=== PATIENT | male | born 1960 ===

== ENCOUNTER 2018-05-10 07:38 | Day surgery (SDC) | payer OTHER ==
[~2018-05-10] VITALS: Ht 165.1 cm; Wt 79.4 kg
[2018-05-10] VITALS (11 sets, daily range): BP systolic 121–156; BP diastolic 75–98
[~2018-05-10 07:38] MED LIST: ceFAZolin 1gm IVPB IVPB ONE; celeBREX 200mg Cap **SURGERY PATIENTS ONLY ORAL ONE; oxyCONTIN 20mg tab ORAL ONE
--- NOTE | 2018-05-10 07:54 | Operative Note - PDOC ---
Operative Note Operative Note Pre-op Diagnosis: left shoulder impingement, rct Procedure: see op report Post-op Diagnosis: same as pre-op plus Operative Findings: consistent w/pre-op dx studies Anesthesia: MAC Specimen: none Complications: none Condition: stable Estimated Blood Loss: none Implant(s) used?: No García Patton MD May 10, 2018 07:54
--- NOTE | 2018-05-10 07:54 | Pre-Procedure Note/Attestation ---
Pre-Procedure Note/Attestation Complete Prior to Procedure Planned Procedure: left Procedure Narrative: shoulder arthroscopy, sad, possible rc repair Indications for Procedure Pre-Operative Diagnosis: left shoulder impingement, rct Attestation I attest that I discussed the nature of the procedure; its benefits; risks and complications; and alternatives (and the risks and benefits of such alternatives ), prior to the procedure, with the patient (or the patient's legal product representative). I attest that, if there was a reasonable possibility of needing a blood transfusion, the patient (or the patient's legal product representative) was given the [facility] standardized written summary, pursuant to the Maurice Cecil Blood Safety Act ([place] Health and Safety Code # 1645, as amended). I attest that I re-evaluated the patient just prior to the surgery and that there has been no change in the patient's H&P, except as documented below: García Patton MD May 10, 2018 07:54
[2018-05-10] MEDS ORDERED: NKM (08:32)
[2018-05-10] MEDS ORDERED: celeBREX 200mg Cap **SURGERY PATIENTS ONLY ORAL ONE (08:37)
[2018-05-10] MEDS ORDERED: oxyCONTIN 20mg tab ORAL ONE (08:37)
[2018-05-10] MEDS ORDERED: LR 1000ml ONE (09:30)
[2018-05-10] MEDS ORDERED: NS Irrig 4000ml IRRIG ONE (09:30)
[2018-05-10] MEDS ORDERED: EPINEPHrine 1mg/1ml Amp ONE (09:31)
[2018-05-10] MEDS ORDERED: Bupivacaine w/Epi 0.25% 30ml Vial INJ ONE (09:31)
[2018-05-10] MEDS ORDERED: Ropivacaine 5mg/ml Vial 30ml INJ ONE (09:33)
[2018-05-10] MEDS ORDERED: Dexamethasone 4mg/ml vial ONE ×2 (09:33→09:39)
[2018-05-10] MEDS ORDERED: Lidocaine 1% MPF 10mg/ml 5ml ONE (09:33)
--- NOTE | 2018-05-10 09:36 | Anethesia Preoperative Eval ---
Anesthesia Pre-op PMH/ROS General Date of Evaluation: May 10, 2018 Time of Evaluation: 09:36 Anesthesiologist: Christie ASA Score: ASA 3 Mallampati Score Class I : Soft palate, uvula, fauces, pillars visible Class II: Soft palate, uvula, fauces visible Class III: Soft palate, base of uvula visible Class IV: Only hard plate visible Mallampati Classification: Class II Surgeon: Abdi Diagnosis: L Shoulder Pain Surgical Procedure: L Shoulder Arthroscopy Anesthesia History: none Social History: current smoker Family History: no anesthesia problems Allergies: Coded Allergies: No Known Allergies (Unverified , 05/09/18) Medications: see eMAR Patient NPO?: Yes Anesthesia Pre-op Phys. Exam Physician Exam Last Vital Signs Date Time Temp Pulse Resp B/P (MAP) Pulse Ox O2 Delivery O2 Flow Rate FiO2 05/10/18 08:40 Room Air 05/10/18 08:25 98.5 49 18 121/75 95 Constitutional: NAD Neurologic: CN 2-12 intact Cardiovascular: RRR Respiratory: CTA Gastrointestinal: S/NT/ND Airway Exam Mallampati Score: Class II MO: full ROM: full Teeth: missing Anesthesia Pre-op A/P Risk Assessment & Plan Assessment: ASA 3 Plan: ASA 3 Status Change Before Surgery: No Pre-Antibiotics Dru Gram Ancef IV Given Within 1 Hr of Incision: Yes Time Given: 09:51 Vincent Soriano MD May 10, 2018 09:36
[2018-05-10] MEDS ORDERED: LR 1000ml 1,000 ML IVLG SCH (09:37)
[2018-05-10] MEDS ORDERED: oxyCODONE HCL/Acetaminophen 5/325mg ORAL PRN (09:45)
[2018-05-10] MEDS ORDERED: Meperidine 50mg/ml Inj(FOR RIGORS ONLY) IVP PRN (09:45)
[2018-05-10] MEDS ORDERED: HYDROcodone/Acetamin 7.5/325 tab ORAL PRN (09:45)
[2018-05-10] MEDS ORDERED: Metoclopramide 10mg/2ml Inj IVP PRN (09:45)
[2018-05-10] MEDS ORDERED: Atropine Sulfate 0.4mg/ml inj IVP PRN (09:45)
[2018-05-10] MEDS ORDERED: Midazolam 2mg/2ml Inj IVP PRN (09:45)
[2018-05-10] MEDS ORDERED: Hydromorphone 0.5mg/0.5ml inj IVP PRN (09:45)
[2018-05-10] MEDS ORDERED: fentaNYL 100 mcg/2 mL IV PRN (09:45)
[2018-05-10] MEDS ORDERED: Norco 5mg/325mg tab ORAL PRN ×2 (09:45→16:01)
[2018-05-10] MEDS ORDERED: DiphenhydrAMINE 50mg/ml Inj IVP PRN (09:45)
[2018-05-10] MEDS ORDERED: LORazepam Inj 2mg/ml 1ml IV PRN (09:45)
[2018-05-10] MEDS ORDERED: Ketorolac 30mg Inj IV PRN ×2 (09:45)
--- NOTE | 2018-05-10 10:19 | Immediate Post-Op Evaluation ---
Immediate Post-Op Evalulation Immediate Post-Op Evalulation Procedure: L Shoulder Arthroscopy Date of Evaluation: May 10, 2018 Time of Evaluation: 11:22 IV Fluids: 600 LR Blood Products: 0 Estimated Blood Loss: 7 Urinary Output: 0 Blood Pressure Systolic: 156 Blood Pressure Diastolic: 97 Pulse Rate: 82 Respiratory Rate: 16 O2 Sat by Pulse Oximetry: 94 Temperature (Fahrenheit): 97.6 Pain Score (1-10): 1 Nausea: No Vomiting: No Complications 0 Patient Status: awake, reacts, patent, none Hydration Status: adequate Dru Gram Ancef IV Given Within 1 Hr of Incision: Yes Time Given: 09:51 Vincent Soriano MD May 10, 2018 10:19
--- NOTE | 2018-05-10 10:20 | 48 Hour Post Anesthesia Eval ---
Post Anesthesia Evaluation Procedure: L Shoulder Arthroscopy Date of Evaluation: May 10, 2018 Time of Evaluation: 13:32 Blood Pressure Systolic: 132 0: 74 Pulse Rate: 54 Respiratory Rate: 18 Temperature (Fahrenheit): 98.2 O2 Sat by Pulse Oximetry: 94 Airway: patent Nausea: No Vomiting: No Pain Intensity: 1 Hydration Status: adequate Cardiopulmonary Status: Stable Mental Status/LOC: patient returned to baseline Follow-up Care/Observations: 0 Post-Anesthesia Complications: 0 Follow-up care needed: ready to discharge Vincent Soriano MD May 10, 2018 10:20
[2018-05-10] MEDS ORDERED: Tylenol #3 tab (300mg/30mg) ORAL PRN (16:01)
[2018-05-10] MEDS ORDERED: D5 1/2NS 1,000 ML IV SCH (16:01)
[2018-05-10] MEDS ORDERED: HYDROmorphone 1mg/ml Carpuject SUBQ PRN (16:01)
--- NOTE | 2018-05-10 20:30 | Operative Note - Dictated ---
DATE OF OPERATION: 05/10/2018 PREOPERATIVE DIAGNOSES: 1. Left shoulder full-thickness rotator cuff tear. 2. Impingement syndrome. 3. Biceps tendon tear. POSTOPERATIVE DIAGNOSES: 1. Left shoulder full-thickness rotator cuff tear. 2. Impingement syndrome. 3. Biceps tendon tear. PROCEDURE: 1. Left shoulder diagnostic arthroscopy with extensive intra-articular debridement. 2. Left shoulder biceps soft tissue tenodesis. 3. Left shoulder arthroscopic rotator cuff repair. 4. Subacromial decompression bursectomy. SURGEON: García Patton M.D. ANESTHESIA: Interscalene with general. INDICATION FOR PROCEDURE: The patient is a pleasant gentleman who has had progressive left hip pain. He had MRI, which showed a full-thickness tear. He has failed conservative treatment and elected to undergo left shoulder arthroscopic rotator cuff repair. Risks, limitations, expectations, and complications of procedure were discussed in detail. All questions addressed. DESCRIPTION OF PROCEDURE: Informed consent was obtained, the patient was brought to the operating room. The patient was placed under interscalene general anesthesia. The patient was then carefully placed in beach-chair position. Ancef was administered. Time-out was performed. Posterolateral incision was then made. Trocar was introduced into the glenohumeral joint. There was significant tear of the superior labrum extending into the biceps tendon. The subscapularis was intact. There was complete detachment of the subscapularis along the greater tuberosity within the infraspinatus. Lateral working portal was then established. Camera was placed in the shoulder, extensive debridement was performed. There was significant tearing and tenodesis of the biceps tendon. Therefore, the biceps tendon was tenotomized and tagged. Camera was then placed in the subacromial space. A complete bursectomy was performed. The undersurface of the acromion was identified. Acromioplasty was started from medial to lateral and completed from posterior to anterior. At this point, the tissue lateral to the articular margin was debrided of soft tissue. Arthroscopic anchor was placed along with 2 mattress sutures. Collateral flow was then placed to cinch down the rotator cuff. The shoulder moved as a unit. Rotator cuff, there is internal and external rotation. The camera was placed in the glenohumeral joint. The footprint was recreated. At this point, the instrument was removed. Portal sites were closed with 3-0 Monocryl suture. Steri-Strips and a sterile dressing were applied. The patient was awoken and taken to recovery room with stable vital signs. ESTIMATED BLOOD LOSS: None. COMPLICATIONS: None. SPECIMENS: None. IMPLANTS: Included 2 arthroscopic anchors and 2 wasted rotator cuff anchors. García Patton M.D. DR: KARENA JOB#: [id number] CC:
== END 2018-05-10 13:50 | disposition home or self-care (01) ==
LOC: SUR 07:38
DX: M75.122 Complete rotator cuff tear or rupture of left shoulder, not specified as traumatic (principal); M25.812 Other specified joint disorders, left shoulder; S46.212A Strain of muscle, fascia and tendon of other parts of biceps, left arm, initial encounter; X58.XXXA Exposure to other specified factors, initial encounter
CPT/HCPCS: 29826; 29827; 29828; C1713; J0171; J0690; J1100; J2250; J2405; J2765; J2795; 94003; 94150